=== PATIENT | female | born 1950 | race Caucasian/White ===

== ENCOUNTER → 2018-08-24 | Outpatient (CLI) | payer MEDICARE, OTHER ==
--- NOTE | 2018-08-28 17:41 | BD ---
EXAMINATION TYPE: Axial Bone Density DATE OF EXAM: 08/24/2018 COMPARISON: 05.31.2006 CLINICAL HISTORY: 68 YR OLD FEMALE....ICD-10 CODE: M81.0 AGE RELATED OSTEOPOROSIS Height: 67 Weight: 154 FRAX RISK QUESTIONS: Secondary Osteoporosis: YES 3. Menopause before 45: YES AT AGE 30 RISK FACTORS HISTORY OF: Family History of Osteoporosis: YES, HER MOTHER, NO FX Active: YES Postmenopausal woman: TOTAL HYST AT AGE 30 YRS OLD Take estrogen and/or progesterone medications: YES SINCE AGE 30 MEDICATIONS: Prednisone or other steroids: PREDNISONE 2 WKS AGO FOR SINUS INFECTION Additional Medications: CLONOPIN FOR SLEEP AND ANXIETY, REFLUX PRN, VIT D Additional History: ANXIETY EXAM MEASUREMENTS: Bone mineral densitometry was performed using the [email or web address] System. Bone mineral density as measured about the Lumbar spine is: ----- L1-L4(G/cm2): 1.131 T Score Values are as follows: ----- L1: -0.3 ----- L2: -0.6 ----- L3: 0.0 ----- L4: -0.8 ----- L1-L4: -0.4 Bone mineral density has: Decreased -6.8% since study of: 05.31.2006 Bone mineral density about the R hip (g/cm2): 0.898 Bone mineral density about the L hip (g/cm2): 0.939 T Score values are as follows: -----R Neck: -1.2 -----L Neck: -0.7 -----R Total: -0.9 -----L Total: -0.5 Bone mineral density has: Increased 0.9% since study of: 05.31.2006 FRAX%s: THERE IS A 8.0% CHANCE FOR A MAJOR OSTEOPOROTIC FX AND A 0.9% FOR HIP.....PROBABILITY OF FX IN 10 YRS TIME IMPRESSION: Osteopenia (T Score between -2.5 and -1). There is slightly increased risk of fracture and the patient may be considered for treatment. Re-Screen 2-5 years. NOTE: T-SCORE=SD OF THE YOUNG ADULT MEAN.
== END | disposition home or self-care (01) ==
LOC: RADBDWWP 07:28
PROVIDERS: ATTEND Family Medicine
DX: M85.80 Other specified disorders of bone density and structure, unspecified site (principal)
CPT/HCPCS: 77080

== ENCOUNTER → 2019-11-06 | Outpatient (CLI) | payer MEDICARE ==
[2019-11-06 13:04] LABS: HCT 46.9 % (34.0-46.0); HGB 15.1 gm/dL (11.4-16.0); MCH 30.8 pg (25.0-35.0); MCHC 32.2 g/dL (31.0-37.0); MCV 95.7 fL (80.0-100.0); Mean Platelet Volume 8.3; Platelet Count 190 k/uL (150-450); RDW 12.3 % (11.5-15.5); WBC 6.5 k/uL (3.8-10.6)
--- NOTE | 2019-11-06 13:41 | ECHOS ---
STRESS ECHOCARDIOGRAM LUMASON: Vial INDICATIONS: Abnormal EKG. MEDICATIONS: BASELINE HEART RATE: 55 BASELINE BLOOD PRESSURE: 107/63 MAXIMUM HEART RATE: 147 MAXIMUM BLOOD PRESSURE: 161/62 85% MPHR: 128 100% MPHR: 157 METS: 7.7 MAXIMUM STAGE REACHED: 3 TOTAL EXERCISE TIME: 6:39 CLINICAL INFORMATION: INDICATION: Exertional shortness of breath with abnormal EKG. Baseline EKG shows sinus rhythm, poor R-wave progression without significant ST-segment depression. Patient exercised on Gurinder protocol for a total of 6.5 minutes achieving 8 METS, 97% of predicted maximal heart rate without chest pain. At this level of activity, she became quite short of breath and there was 1.[address]-segment depression noted in the inferolateral leads. Baseline echo shows normal left ventricular size, wall motion, systolic function. Postexercise, the major septic is suboptimal. There is evidence of exercise-induced wall motion abnormality involving the inferior wall. CONCLUSION: 1. Fair exercise tolerance. 2. Abnormal stress test by EKG criteria. 3. Technically suboptimal but abnormal stress echo. MMODL / IJN: [id number] /
[2019-11-06 15:08] LABS: Albumin 4.1 g/dL (3.5-5.0); Calcium 9.4 mg/dL (8.4-10.2); Potassium 4.2 mmol/L (3.5-5.1); Total Bilirubin 0.6 mg/dL (0.2-1.3)
== END | disposition home or self-care (01) ==
LOC: RADNMMAIN 09:32
PROVIDERS: ATTEND Family Medicine
DX: R94.31 Abnormal electrocardiogram [ECG] [EKG] (principal); R07.9 Chest pain, unspecified
CPT/HCPCS: 80053; 80061; 85027; 93351

== ENCOUNTER → 2019-11-14 | Day surgery (SDC) | payer MEDICARE ==
[2019-11-13 08:34] VITALS: BMI 22.2
[~2019-11-14] MED LIST: ALPRAZolam 0.25 MG TAB PO PRN; ALPRAZolam 0.5 MG TAB PO PRN; ASPIRIN 325 MG TAB PO STA; IOPAMIDOL-370 125ML BTL INJ ONE; LIDOCAINE 1% INJ 10MG/ML (20 ML MDV) SQ ONE; MIDAZOLAM 2 MG/2 ML VIAL IVP ONE; NITROGLYCERIN SL TABS 0.4 MG TAB SUBLINGUAL PRN; RX INFO: IV CONTRAST WAS GIVEN 1 EACH MISC MISCELLANE PRN; SODIUM CHLORIDE 0.9% 1,000 ML in EMPTY BAG 1 BAG IV ONE; fentaNYL (PF) 50 MCG/ML 2 ML AMP IVP ONE
[2019-11-14 08:39] VITALS: RESP 18; TEMP 98.1
[2019-11-14 16:03] VITALS: PULSE 58
--- NOTE | 2019-11-14 16:03 | LTR ---
To: Dr. Amanda Swanson Re: Priyanka Case (50) Dear Amanda: I performed cardiac catheterization on Priyanka Case. A detailed catheterization is enclosed for your records. In brief, cardiac catheterization revealed normal coronary arteries, and patient's chest pain is noncardiac in origin. Stress echo is a false-positive stress test. Thank you for giving me the privilege of participating in the care of this pleasant lady. Sincerely, Yared Diamond M.D. GÓMEZ / CELIO: [id number] /
--- NOTE | 2019-11-14 16:03 | CC ---
CARDIAC CATHETERIZATION REPORT INDICATION: Chest pain with abnormal stress echo. PROCEDURE NOTE: After obtaining informed consent, left heart catheterization and coronary angiogram were performed via the right femoral artery using standard Joseline catheters. The patient tolerated the procedure well without any obvious immediate complications. A femoral angiogram was performed and Angio-Seal was deployed for hemostasis. The patient received moderate conscious sedation. Total sedation time was 14 minutes. FINDINGS: HEMODYNAMICS: Left ventricular end-diastolic pressure is 12-14 mm. There is no significant gradient across the aortic valve. LEFT VENTRICULOGRAM: Left ventriculogram was not performed. ANGIOGRAPHIC DATA: 1. Left main coronary artery. Left main coronary artery is a normal-sized vessel and is free of stenosis. It divides into left anterior descending coronary artery and circumflex coronary artery. LAD and its branches and circumflex coronary artery and its branches are free of significant stenosis. 2. Right coronary artery is free of significant disease. CONCLUSIONS: 1. Normal coronary arteries. 2. Normal left ventricular end-diastolic pressure. PLAN: Patient's chest pain is noncardiac in origin, and the stress echo is a falsely positive stress test. Her management is going to be in the form of risk factor modification. MMODL / IJN: [id number] /
[2019-11-14 16:34] VITALS: BP 122/56
== END ==
LOC: CATHCVL 07:40
PROVIDERS: ATTEND Internal Medicine Cardiovascular Disease
DX: R07.9 Chest pain, unspecified (principal); R94.39 Abnormal result of other cardiovascular function study; R06.02 Shortness of breath; E78.5 Hyperlipidemia, unspecified; Z79.890 Hormone replacement therapy; Z79.899 Other long term (current) drug therapy; Z82.49 Family history of ischemic heart disease and other diseases of the circulatory system
CPT/HCPCS: 93458; C1769 ×3; C1760; C1894; J2250; J2001; J3010; Q9967

== ENCOUNTER → 2020-08-05 | Outpatient (CLI) | payer MEDICARE ==
--- NOTE | 2020-08-05 13:59 | CT ---
EXAMINATION TYPE: CT sinus wo con DATE OF EXAM: 08/05/2020 COMPARISON: NONE HISTORY: Chronic sinusitis per order. Headaches with facial or sinus pain for 6 months for a patient. CT DLP: 569.10 mGycm. Automated Exposure Control for Dose Reduction was Utilized. TECHNIQUE: CT scan of the sinuses is performed without contrast, axial images are obtained, coronal r eformatted images are also reviewed. FINDINGS: The paranasal sinuses including the frontal, ethmoid, sphenoid, and maxillary sinuses bila terally are well-aerated without abnormal opacification. The ostiomeatal complex is patent bilateral ly on coronal image 18. Nasal septum is deviated to left of midline. Visualized portion of mastoid air cells show no abnormal opacification. The globes are intact bilate rally. Visualized portion of brain parenchyma is unremarkable. IMPRESSION: The paranasal sinuses are clear and the ostiomeatal complex is patent bilaterally.
== END ==
LOC: RADCTMAIN 13:09
PROVIDERS: ATTEND Otolaryngology
DX: J32.9 Chronic sinusitis, unspecified (principal)
CPT/HCPCS: 70486

== ENCOUNTER → 2020-09-28 | Outpatient (CLI) | payer MEDICARE ==
--- NOTE | 2020-10-20 11:09 | EM ---
Event monitor shows Sinus rhythm PACs and atrial couplets and triplets 1 short run of paroxysmal atrial tachycardia, nonsustained for 6 beats MTDD
== END | disposition home or self-care (01) ==
LOC: RADECHMAIN 12:24
PROVIDERS: ATTEND Family Medicine
DX: R55 Syncope and collapse (principal)
CPT/HCPCS: 93270

== ENCOUNTER → 2020-11-26 | Outpatient (CLI) | payer MEDICARE ==
--- NOTE | 2020-11-26 18:28 | CT ---
EXAMINATION TYPE: CT brain wo con DATE OF EXAM: 11/26/2020 COMPARISON: None HISTORY: Right eye pain after syncope. CT DLP: 1025.[address] of the brain was performed. The ventricles, basal cisterns and sulci overlying the cerebral convexities demonstrate mild enlargem ent. There is no evidence for intracranial hemorrhage or sulcal effacement. There is decreased attenuation about the periventricular white matter and deep white matter of both c erebral hemispheres, compatible with chronic small vessel ischemia. Differential diagnosis does inclu de demyelination. No mass effects are seen.No midline shift. Osseous calvarium is intact. If symptoms persist consider MRI. IMPRESSION: 1. Age related atrophic and chronic small vessel ischemic change without acute intracranial process s een at this time.
== END | disposition home or self-care (01) ==
LOC: RADCTMAIN 18:04
PROVIDERS: ATTEND Psychiatry & Neurology Neurology
DX: I67.82 Cerebral ischemia (principal); G31.9 Degenerative disease of nervous system, unspecified
CPT/HCPCS: 70450

== ENCOUNTER → 2020-12-10 | Outpatient (CLI) | payer MEDICARE ==
--- NOTE | 2020-12-10 14:19 | P.PAINCN ---
History of Present Illness - Reason for Consult Consult date: 12/10/20 - History of Present Illness This is years old female with a chronic history of severe neck pain and headache, patient reported that she used to have migraine headaches since childhood, and usually she used to get back every week, that 3 months ago , she fainted her head hit the bathroom floor, and from that time she started having severe neck pain and headache, neck pain is constant and increases with any neck movement especially hyperextension, she denies any radiation of the pain she denies any numbness or tingling sensation in the upper extremity, he denies any motor or sensory deficit, he denies any change in the bowel movement or urination, patient tried chiropractors and ice and heat out any benefit and she tried Maxalt and Excedrin Migraine, she had minimum benefit from Past Medical History Past Medical History: Mitral Valve Prolapse (MVP) Additional Past Medical History / Comment(s): "leaky valve" per pt., had been told in past had MVP, hx. of frequent UTI's, always shows blood in urine, migraine headaches, SOB w/incline walking other parry not History of Any Multi-Drug Resistant Organisms: None Reported Past Surgical History: Cholecystectomy, Hysterectomy Additional Past Surgical History / Comment(s): septorinialplasty, 4 cystyscopes 2014. Past Anesthesia/Blood Transfusion Reactions: No Reported Reaction Past Psychological History: Anxiety Smoking Status: Never smoker Past Alcohol Use History: Occasional Past Drug Use History: None Reported Medications and Allergies Home Medications Medication Instructions Recorded Confirmed Type Aspirin/Acetaminophen/Caffeine 1 each PO Q6H PRN 11/13/19 12/10/20 History [Excedrin Migraine Caplet] Rizatriptan Benzoate [Maxalt] 10 mg PO DIRECTED PRN 11/13/19 12/10/20 History Sertraline [Zoloft] 25 mg PO DAILY 11/13/19 12/10/20 History estradioL [Estradiol 0.0375 MG 1 patch TRANSDERM Q7DAYS 11/13/19 12/10/20 History Patch] Rosuvastatin [Crestor] 5 mg PO WEEKLY 12/10/20 12/10/20 History Allergies Allergy/AdvReac Type Severity Reaction Status Date / Time metoclopramide [From Reglan] AdvReac felt hyper Verified 11/14/19 08:26 prochlorperazine AdvReac felt hyper Verified 11/14/19 08:26 [From Compazine] Physical Exam Vitals: Intake and Output 12/09/20 12/10/20 12/10/20 22:59 06:59 14:59 Other: Weight 63.049 kg Physical Examinations : -Constitutiona : Cooperative , not in acute distress . -HEENT : nech : supple , no Lymphadenopathy , normal thyroid size . : eyes : no ptosis , no icterus, no photophobia . - neurologic : Cranial nerve II to XII intact , no focal neurological deffecit . -psychatric : alert , oriented X 3 , appropriate affect , intact judgment and insight . -Lymphatic : no Lymphadenopathy . - musculoskeltal : Cervical Spine motor stregnth in the deltoid and biceps, normal right side , normal Left side motor stregnth biceps and the wrist extensors normal right side ,normal left side . motor stregnth in the triceps muscle . normal Right side , normal Left side deep tendon reflexes normal at the biceps , normal at Brachioradialis , normal at triceps. cervical facet loading test: Positive Bilaterally Spurling test= negative bilaterally. Neck distraction test= negative bilaterally Sayda sign= negative bilaterally. Tenderness over the occipital nerves bilaterally Lumber spine moter stegnth lower extremities ,thigh and legs 5/5 Right side , 5/5 Left side Results Comments: MRI of the cervical spine degenerative disc disease Assessment and Plan Plan: Assessment and plan=1-occipital neuralgia bilaterally. 2-cervicogenic headache. 3-cervical spondylosis. Patient could benefit from occipital block bilaterally If patient continued to have pain after occipital nerve block then we will consider doing diagnostic medial branch block cervical area Time with Patient: Greater than 30 PQRS Measure Charge Sheet Measure #130: Documentation of Current Meds in Medical Chart: Patient's medications documented in chart Measure #226: Tobacco Use: Screen & Cessation Intervention: Pt not a tobacco user Measure #111: Pneumonia Vaccination: Pneumococcal vaccine administered or previously received Measure #47: Advance Care Plan: Advance care planning discussed & documented, pt chose/unable to give Measure #412: Opioid Treatment Agreement: No documentation of signed opioid treatment agreement Measure #408: Opioid Therapy Follow-up Evaluation: Patient had NO f/u eval minimum every 3 months during opioid therapy Measure #317: Preventitive Care & Scrn High Bld Press & F/U: Normal blood pressure, f/u not required Measure #128: Body Mass Index (BMI) Screening & Follow-up: BMI documented within normal parameters Measure #131: Pain Assessment & Follow-up: Pain positive & plan documented, Follow-up scheduled Measure #431: Unhealthy Alcohol Use Preventative Care & Scrn: Patient not identified as an unhealthy alcohol user PQRS Narrative: Smoking Status Never smoker Home Medications: Ambulatory Orders Aspirin/Acetaminophen/Caffeine [Excedrin Migraine Caplet] 1 each PO Q6H PRN 11/13/19 Rizatriptan Benzoate [Maxalt] 10 mg PO DIRECTED PRN 11/13/19 Sertraline [Zoloft] 25 mg PO DAILY 11/13/19 estradioL [Estradiol 0.0375 MG Patch] 1 patch TRANSDERM Q7DAYS 11/13/19 Rosuvastatin [Crestor] 5 mg PO WEEKLY 12/10/20
[2020-12-10 14:20] VITALS: BP 120/74; PULSE 66; RESP 18; TEMP 97.8
== END ==
LOC: PNWHC3 12:55
PROVIDERS: ATTEND Specialist
DX: M54.81 Occipital neuralgia (principal); M47.812 Spondylosis without myelopathy or radiculopathy, cervical region; Z88.8 Allergy status to other drugs, medicaments and biological substances
CPT/HCPCS: 99211

== ENCOUNTER 2021-01-07 06:43 | Day surgery (SDC) | payer MEDICARE ==
[2021-01-06 10:41] VITALS: BMI 21.7
[~2021-01-07 06:43] MED LIST changes: -ALPRAZolam 0.25 MG TAB PO PRN; -ALPRAZolam 0.5 MG TAB PO PRN; -ASPIRIN 325 MG TAB PO STA; -IOPAMIDOL-370 125ML BTL INJ ONE; +LACTATED RINGERS 1,000 ML IV SCH; -LIDOCAINE 1% INJ 10MG/ML (20 ML MDV) SQ ONE; -MIDAZOLAM 2 MG/2 ML VIAL IVP ONE; -NITROGLYCERIN SL TABS 0.4 MG TAB SUBLINGUAL PRN; -RX INFO: IV CONTRAST WAS GIVEN 1 EACH MISC MISCELLANE PRN; -SODIUM CHLORIDE 0.9% 1,000 ML in EMPTY BAG 1 BAG IV ONE; -fentaNYL (PF) 50 MCG/ML 2 ML AMP IVP ONE
[2021-01-07 07:29] VITALS: TEMP 97.6
[2021-01-07] MEDS ORDERED: fentaNYL (PF) 50 MCG/ML 2 ML AMP ONE (08:05)
[2021-01-07] MEDS ORDERED: MIDAZOLAM 2 MG/2 ML VIAL ONE (08:05)
[2021-01-07] MEDS ORDERED: methylPREDNISolone ACETATE 40 MG/ML 1 ML VIAL ONE (08:05)
[2021-01-07] MEDS ORDERED: ROPIVACAINE 5MG/ML 20ML VIAL ONE (08:05)
--- NOTE | 2021-01-07 08:13 | P.PCN ---
Date of Procedure: 01/07/21 Procedure(s) Performed: Preoperative diagnoses= 1- Greater occipital neuralgia. 2-cervicogenic headache. 3-cervical spondylosis with cervical facet arthropathy Postoperative diagnoses= same as preoperative diagnosis. Procedure= Bilateral Greater occipital nerve block Anesthesia= moderate sedation with Versed 1 mg and fentanyl 50 micrograms . Estimated blood loss=minimal. Procedure indication= the patient had a history of severe chronic neck pain ,and headache, diagnosed with occipital neuralgia exam was positive for severe tenderness over the occipital nerve bilaterally, she will be a good candidate occipital nerve block, patient failed conservative management Procedure description= the patient was seen and identified in the preoperative holding area, risks and benefits and alternative of the procedure and possible complications discussed with the patient, and he agreed with the preceding, patient signed the consent, an IV was started, and vital signs were monitored and were stable throughout the procedure, patient was placed in the sitting position or table and the neck area was prepped and draped with a sterile fashion, vital signs were closely monitored during the procedure, 25-gauge needle advanced 1 inch lateral to the occipital protuberance on the right side, at the location of the right occipital nerve , then after negative aspiration for heme and CSF and there was no paresthesia during the injection, 5 ml of Robivacaine 0.5% and 20 mg of Depo-Medrol injected after negative aspiration, the needle removed, and the entire same procedure was repeated for the left Greater occipital nerve. Patient tolerated the procedure well without any complication, The patient returned to supine position after the back was cleaned and a Band- Aid applied, the patient transported to recovery room in stable condition and he was monitored for 30 minutes before he was discharged home and then patient was reexamined before going home and patient was discharged in stable condition and patient will follow up with the pain clinic in a few weeks.
[2021-01-07] MEDS ORDERED: IV FLUID CONTINUATION 850 ML IV ONE (08:27)
[2021-01-07 08:32] VITALS: RESP 20
[2021-01-07 08:49] VITALS: BP 104/76; PULSE 60
== END 2021-01-07 08:49 | disposition home or self-care (01) ==
LOC: ORPAIN 06:43
PROVIDERS: ATTEND Specialist
DX: M54.81 Occipital neuralgia (principal); R51.9 Headache, unspecified; M47.812 Spondylosis without myelopathy or radiculopathy, cervical region
CPT/HCPCS: 64405; J2250; J1030; J3010; J2795

== ENCOUNTER 2021-02-09 09:41 | Day surgery (SDC) | payer MEDICARE ==
[2021-02-04 14:34] VITALS: BMI 21.9
[2021-02-09 10:01] VITALS: RESP 18; TEMP 97.9
[2021-02-09] MEDS ORDERED: fentaNYL (PF) 50 MCG/ML 2 ML AMP ONE (10:43)
[2021-02-09] MEDS ORDERED: ROPIVACAINE 5MG/ML 20ML VIAL ONE (10:43)
[2021-02-09] MEDS ORDERED: MIDAZOLAM 2 MG/2 ML VIAL ONE (10:43)
[2021-02-09] MEDS ORDERED: TRIAMCINOLONE ACETONIDE 40 MG/ML 1 ML VIAL ONE (10:43)
[2021-02-09] MEDS ORDERED: LIDOCAINE 1% INJ 10MG/ML (20 ML MDV) ONE (10:43)
--- NOTE | 2021-02-09 10:55 | P.PCN ---
Date of Procedure: 02/09/21 Surgeon: Roxane Coffman Pathology: none sent Condition: stable Disposition: PACU Description of Procedure: Pre-operative diagnosis: 1- bilateral occipital neuralgea, cervical spondylosis Post Operative Diagnosis 1-same as above Procedure: 1- bilateral occipital nerve block ANESTHESIA: Local with Lidocaine 1% and IV Moderate conscious sedation with Versed and fentanyl EBL: Minimal PROCEDURE INDICATION: The patient with neck pain and headache secondary to occipital neuralgea unresponsive to conservative treatments. PROCEDURE DESCRIPTION / TECHNIQUE: The patient was seen and identified in the preoperative area. Risks, benefits, complications, and alternatives were discussed with the patient, the patient agreed to proceed with the procedure and signed the consent. IV was started. Vital signs remained stable throughout the procedure. Patient was taken to the OR and time out was completed. The patient was placed in the prone position on the procedure table. . The cervical area and right occiptial area were prepped with chloraprep. Critical pause was taken. Vital signs were closely monitored during the procedure. Conscious sedation was used during the procedure to decrease patients anxiety. The the occipital exuberance and superior nuchal line were identified on the right side of the occiput. The greater occipital nerve location was estimated to be medial to the occipital artery . Skin was localized with lidocaine 1% then I used 25-gauge 1-1/2 inch needle to go through the skin and infiltrate 2.5 MLS of a solution made up of 4 MLS Marcaine 0.5% +40 mg of Kenalog. Patient tolerated procedure well.
[2021-02-09 11:17] VITALS: BP 150/70; PULSE 62
[2021-02-09] MEDS ORDERED: IV FLUID CONTINUATION 1,000 ML IV ONE (11:18)
== END 2021-02-09 11:22 | disposition home or self-care (01) ==
LOC: ORPAIN 09:41
PROVIDERS: ATTEND Anesthesiology
DX: M47.812 Spondylosis without myelopathy or radiculopathy, cervical region (principal)
CPT/HCPCS: 64405; J2250; J3301; J2001 ×2; J3010; J2795

== ENCOUNTER → 2023-07-13 | Outpatient (CLI) | payer MEDICARE ==
[2023-07-13 09:31] LABS: African American GFR (CKD) 79 (>60 ml/min/1.73 sqM); Blood Urea Nitrogen 16 mg/dL (7-17); Non-African American GFR(CKD) 68 (>60 ml/min/1.73 sqM)
--- NOTE | 2023-07-13 10:59 | CT ---
EXAMINATION TYPE: CT abdomen pelvis w con DATE OF EXAM: 07/13/2023 COMPARISON: 11/12/2010. HISTORY: Left lower quadrant pain. CT DLP: 1122 mGycm Automated exposure control for dose reduction was used. TECHNIQUE: Helical acquisition of images was performed from the lung bases through the pelvis. CONTRAST: Performed with Oral Contrast and with IV Contrast, patient injected with 100ml mL of Isovue 300. EXAMINATION TYPE: CT abdomen pelvis w con DATE OF EXAM: 07/13/2023 COMPARISON: HISTORY: Left lower quadrant pain. CT DLP: 1122 mGycm Automated exposure control for dose reduction was used. TECHNIQUE: Helical acquisition of images was performed from the lung bases through the pelvis. CONTRAST: Performed with Oral Contrast and with IV Contrast, patient injected with 100ml mL of Isovue 300. FINDINGS: LOWER CHEST : The visualized lung bases are clear. There are no pleural or pericardial effusions. ABDOMEN: Liver and Biliary system: Normal. Adrenal glands: Normal. Kidneys and ureters: There is a 4.4 cm simple cyst in the interpolar region of the left kidney. The k idneys otherwise appear unremarkable. Spleen: Normal. Pancreas: Normal. Gallbladder: Normal. Lymph nodes, Peritoneum and mesentery: There is no mesenteric or retroperitoneal lymphadenopathy. Gastrointestinal tract: There are no dilated loops of bowel or free intraperitoneal air. The appe ndix is not clearly seen with no secondary changes of appendicitis identified. There is mild sigmoid colonic diverticulosis without evidence of diverticulitis. Aorta/IVC: No aortic aneurysm. IVC normal. Abdominal wall: Normal. PELVIS: Fluid: There is no free fluid in the pelvis. Lymph Nodes: There is no pelvic or inguinal lymphadenopathy.. Urinary bladder: Normal. BONES: There are no osseous destructive lesions.. ADDITIONAL SIGNIFICANT FINDINGS: None. IMPRESSION: 1. No acute process seen within the abdomen or pelvis. 2. Diverticulosis without evidence of diverticulitis.
== END | disposition home or self-care (01) ==
LOC: RADCTMAIN 08:09
PROVIDERS: ATTEND Internal Medicine Gastroenterology
DX: K57.30 Diverticulosis of large intestine without perforation or abscess without bleeding (principal)
CPT/HCPCS: 82565; 84520; 74177; 36415; Q9967

== ENCOUNTER → 2024-08-15 | Outpatient (CLI) | payer MEDICARE ==
--- NOTE | 2024-08-15 14:56 | P.PAINCN ---
History of Present Illness - History of Present Illness 74-year-old pleasant lady who has been having headache with occipital attribut ion for most of her life. The past patient had occipital nerve block with questionable improvement. Followed by neck trigger point injection and ultimately cervical spine fusion.. Her headache is significantly bothering her which is located in the back of the neck going down to back of the head and occipital area across her head in the frontal area and behind her eyes. No particular side worse than the other. Pain also distributes down to the neck area. She describes her pain as achy in character present most of the days. Density goes up to 7/10. No particular triggering or relieving factor. Denies any other accompanying symptoms such as motor or sensory deficits. Past Medical History Past Medical History: Mitral Valve Prolapse (MVP) Additional Past Medical History / Comment(s): "leaky valve" per pt., had been told in past had MVP, hx. of frequent UTI's, always shows blood in urine, migraine headaches, SOB w/incline walking other parry not History of Any Multi-Drug Resistant Organisms: None Reported Past Surgical History: Cholecystectomy, Hysterectomy Additional Past Surgical History / Comment(s): septo-rhinoplasty, 4 cystoscopes 2014. Past Anesthesia/Blood Transfusion Reactions: No Reported Reaction Additional Past Anesthesia/Blood Transfusion Reaction / Comm: takes alot to be sedated per pt. Smoking Status: Never smoker Medications and Allergies Home Medications Medication Instructions Recorded Confirmed Type Aspirin/Acetaminophen/Caffeine 1 each PO Q6H PRN 11/13/19 02/09/21 History [Excedrin Migraine Caplet] Rizatriptan Benzoate [Maxalt] 10 mg PO DIRECTED PRN 11/13/19 02/09/21 History Sertraline [Zoloft] 25 mg PO DAILY 11/13/19 02/09/21 History estradioL [Estradiol 0.0375 MG 1 patch TRANSDERM TUFR 11/13/19 02/09/21 History Patch] Rosuvastatin [Crestor] 5 mg PO WEEKLY 12/10/20 02/09/21 History Baclofen 10 mg PO TID PRN 01/06/21 02/09/21 History Cholecalciferol [Vitamin D3 (25 500 unit PO DAILY 01/06/21 02/09/21 History Mcg = 1000 Iu)] Cyanocobalamin [Vitamin B-12] 500 mcg PO DAILY 01/06/21 02/09/21 History Estrogens, Conjugated Cream 1 gm VAGINAL WEEKLY 01/06/21 02/09/21 History [Premarin Cream] L.acidoph,Paracasei, B.lactis 1 each PO DAILY 01/06/21 02/09/21 History [Probiotic] Meclizine [Antivert] 12.5 mg PO BID PRN 01/06/21 02/09/21 History Estazolam [Prosom] 1 mg PO HS PRN 02/04/21 02/09/21 History Allergies Allergy/AdvReac Type Severity Reaction Status Date / Time metoclopramide [From Reglan] AdvReac felt hyper Verified 08/15/24 14:28 prochlorperazine AdvReac felt hyper Verified 08/15/24 14:28 [From Compazine] Physical Exam On physical examination, significant tenderness and reproduction of her headache on palpation over the greater occipital nerves bilaterally. Moderate tenderness in cervical spine midline and paraspinal areas. Cervical spine flexion hyperextension rotation is limited because of pain. Motor and sensory exam in upper extremities grossly intact. Assessment and Plan Assessment: 1. Occipital neuralgia. 2. C2-3 facet joint arthropathy involving third occipital nerve. Plan: Will schedule for bilateral occipital nerve perineural injection with local anesthetics and steroid. Discussed the procedure and possible complications which may include infection bleeding nerve damage, arterial injection and subarachnoid injection of local anesthetics. Patient understands and all questions were answered. In future, if occipital nerve injection does not improve pain she could be a candidate for third occipital nerve block initially leading to radiofrequency ab lation if indicated. PQRS Measure Charge Sheet PQRS Narrative: Smoking Status Never smoker Hx Alcohol Use (MH) Yes: occ Home Medications: Ambulatory Orders Aspirin/Acetaminophen/Caffeine [Excedrin Migraine Caplet] 1 each PO Q6H PRN 0 11/13/19 Rizatriptan Benzoate [Maxalt] 10 mg PO DIRECTED PRN 11/13/19 Sertraline [Zoloft] 25 mg PO DAILY 11/13/19 estradioL [Estradiol 0.0375 MG Patch] 1 patch TRANSDERM TUFR 11/13/19 Rosuvastatin [Crestor] 5 mg PO WEEKLY 12/10/20 Baclofen 10 mg PO TID PRN 01/06/21 Cholecalciferol [Vitamin D3 (25 Mcg = 1000 Iu)] 500 unit PO DAILY 01/06/21 Cyanocobalamin [Vitamin B-12] 500 mcg PO DAILY 01/06/21 Estrogens, Conjugated Cream [Premarin Cream] 1 gm VAGINAL WEEKLY 01/06/21 L.acidoph,Paracasei, B.lactis [Probiotic] 1 each PO DAILY 01/06/21 Meclizine [Antivert] 12.5 mg PO BID PRN 01/06/21 Estazolam [Prosom] 1 mg PO HS PRN 02/04/21
[2024-08-15 15:39] VITALS: BP 125/72; PULSE 67; RESP 16; TEMP 98.2
== END ==
LOC: PNWHC3 14:01
PROVIDERS: ATTEND Pain Medicine Interventional Pain Medicine
DX: M54.81 Occipital neuralgia (principal); M47.812 Spondylosis without myelopathy or radiculopathy, cervical region; Z88.8 Allergy status to other drugs, medicaments and biological substances; Z88.1 Allergy status to other antibiotic agents
CPT/HCPCS: 99211

== ENCOUNTER 2024-08-27 09:48 | Day surgery (SDC) | payer MEDICARE ==
[2024-08-27] MEDS ORDERED: LACTATED RINGERS 1,000 ML IV SCH (10:03)
[2024-08-27 10:15] VITALS: TEMP 97.7
[2024-08-27] MEDS ORDERED: ROPIVACAINE 5MG/ML 20ML VIAL ONE (10:53)
[2024-08-27] MEDS ORDERED: methylPREDNISolone ACETATE 40 MG/ML 1 ML VIAL ONE (10:53)
--- NOTE | 2024-08-27 10:58 | P.PCN ---
Date of Procedure: 08/27/24 Procedure(s) Performed: Preoperative diagnoses= 1- Greater occipital neuralgia. 2-cervicogenic headache. 3-cervical spondylosis with cervical facet arthropathy Postoperative diagnoses= same as preoperative diagnosis. Procedure= Bilateral Greater occipital nerve block Anesthesia= none. Estimated blood loss=minimal. Procedure indication= the patient had a history of severe chronic neck pain ,and headache, diagnosed with occipital neuralgia exam was positive for severe tenderness over the occipital nerve bilaterally, she will be a good candidate occipital nerve block, patient failed conservative management Procedure description= the patient was seen and identified in the preoperative holding area, risks and benefits and alternative of the procedure and possible complications discussed with the patient, and he agreed with the preceding, patient signed the consent, and vital signs were monitored and were stable throughout the procedure, patient was placed in the sitting position or table and the neck area was prepped and draped with a sterile fashion, vital signs were closely monitored during the procedure, 25-gauge needle advanced 1 inch lateral to the occipital protuberance on the right side, at the location of the right occipital nerve , then after negative aspiration for heme and CSF and there was no paresthesia during the injection, 5 ml of Robivacaine 0.5% and 20 mg of Depo-Medrol injected after negative aspiration, the needle removed, and the entire same procedure was repeated for the left Greater occipital nerve. Patient tolerated the procedure well without any complication, The patient returned to supine position after the back was cleaned and a Band-A id applied, the patient transported to recovery room in stable condition and he was monitored for 30 minutes before he was discharged home and then patient was reexamined before going home and patient was discharged in stable condition and patient will follow up with the pain clinic in a few weeks.
[2024-08-27 11:06] VITALS: RESP 16
[2024-08-27 11:29] VITALS: BP 143/72; PULSE 64
== END 2024-08-27 11:40 | disposition home or self-care (01) ==
LOC: ORPAIN 09:48
PROVIDERS: ATTEND Specialist
DX: M54.81 Occipital neuralgia (principal); M47.812 Spondylosis without myelopathy or radiculopathy, cervical region; G44.86 Cervicogenic headache; Z88.8 Allergy status to other drugs, medicaments and biological substances
CPT/HCPCS: 64405; J2795; J1010

== ENCOUNTER → 2024-09-12 | Outpatient (CLI) | payer MEDICARE ==
--- NOTE | 2024-09-12 14:56 | XR ---
EXAMINATION TYPE: XR cervical spine limited DATE OF EXAM: 09/12/2024 2:51 PM INDICATION: Patient age:Female; 74 years old; Reason for study: M54.12 RADICULOPATHY, CERVICAL REGION; [facility], pain COMPARISON: None TECHNIQUE: The cervical spine was imaged in frontal, lateral, and odontoid projections. FINDINGS: Postsurgical changes from ACDF with disc hardware at C4-C6. Hardware appears intact with appropriate alignment. No acute fracture. Vertebral body heights are maintained. Disc space narrowing at C3-C4 an d C6-C7. Grade 1 anterolisthesis is seen at C7 on T1. Pedicles are intact. Soft tissues are within n ormal limits. The odontoid appears intact. IMPRESSION: 1. No fracture or dislocation. 2. Changes from ACDF C4-C6. Hardware appears intact with appropriate alignment. 3. Mild multilevel degenerative disc disease above and below the hardware. [facility], , 09/12/2024 2:54 PM
== END | disposition home or self-care (01) ==
LOC: RADXRMAIN 14:29
PROVIDERS: ATTEND Anesthesiology
DX: M50.123 Cervical disc disorder at C6-C7 level with radiculopathy (principal); M43.12 Spondylolisthesis, cervical region; Z98.1 Arthrodesis status
CPT/HCPCS: 72040

== ENCOUNTER → 2024-09-12 | Outpatient (CLI) | payer MEDICARE ==
[2024-09-12 14:20] VITALS: BP 123/74; PULSE 82; RESP 16
--- NOTE | 2024-09-12 15:27 | P.PAINPG ---
PQRS Measure Charge Sheet Comment: A 74 yr old female with a history of severe and chronic neck pain secondary to occipital neuralgia, cervicogenic headache presents today for evaluation s/p BL JOSE. Patient states she experienced 0% pain relief s/p procedure. Pain level is provoked at 5-6 /10 in intensity, constant, predominantly axial, localized in the cervical spine, throbbing in character w occasional shooting towards the lower neck. Pain is provoked by reading. Pain is alleviated with physician guided stretches daily since early Jul 2024, heat, medications, topical, use of soft cervical brace, repositioning and rest. Interventional pain procedures completed include Cervical surgery w hardware (2021), BL JOSE x1 Patient is currently on Tyl, Ibu, Excedrin, Icy-Hot, Salon Pas, CBD Oil Patient denies any side effects of the medication(s), denies excessive drowsiness or sleepiness, denies suicidal ideation and reports that the current pain medication is helping to control the pain and improve activities of daily living. Patient denies any motor or sensory deficits. Patient denies any fever or night sweats, denies any change in the bowel movements or urination. Physical Examination: -Constitutional: Cooperative. Not in acute distress . - Neurologic: Cranial nerve II to XII intact. No focal neurological deficits. - Psychatric: Alert & oriented x 3. Matching mood & appropriate affect. Judgment and insight intact. - Musculoskeletal: Cervical spine: Muscle bulk/ tone/ strength in the bilateral upper extremities normal Vertebral body tenderness to palpation over Spurling test positive Distraction test positive Facet loading test positive BL C2-C3/ C3-C4 Thoracic spine Muscle bulk / tone/ strength in the bilateral paraspinal muscles normal Vertebral body tender to palpation over Facet loading test positive TTP Lumbar spine: Motor bulk/ tone/ strength lower extremities , thigh and legs : 5/5 Deep tendon reflexes : Normal Knee Jerk. Normal Ankle Jerk . Vertebral body tenderness to palpation over Lumbar Facet Loading Test positive Straight Leg Raise: positive at 30 degrees right side/ left side Gaenslen's Test positive Sacral spine : Severe tenderness over the Sacroiliac joint: right side / left side Range of motion: Flexion of the lumbar spine <60 degrees Range of motion: Extension of the lumbar spine <20 degrees Gaenslen's Test positive R / L Daniele test: positive right side / left side Thigh Thrust Test positive R / L Sacral Thrust Test positive R/ L Imaging: CT non contrast brain from 11/26/20 reviewed MRI non contrast cervical spine from 11/02/20 reviewed Assessment and plan: Chronic head and neck pain secondary to Occipital neuralgia, Cervicogenic [facility]KEON Recommendation of cervical x ray M54.12. Prescription refill for Fioricet 40-300-50mg #120 w 1 RF. Use, side effects, adverse reactions and safe storage discussed. All questions answered. I have spent less than 30 minutes on patient care today. Dr Mayen was available by phone for the evaluation of this patient. The time was used to review the medical records including relevant urine studies and Prescription history (MAPs), review of the available imaging, evaluation and examination of the patient, coordination of care with the medical staff and if applicable referring physicians, as well as creation of the medical record - Pain Location Bilateral Upper Occipital Non-Pharmacological Interventions: Heat, Ice, Inactivity, Physical Therapy, Position/Reposition, Sitting Pharmacological Interventions: Block, Epidural, PRN Medication, Prophylactic Medication, Scheduled Medication, Topical Medication PQRS Narrative: Smoking Status Never smoker Hx Alcohol Use (MH) Yes: occ Home Medications: Ambulatory Orders Aspirin/Acetaminophen/Caffeine [Excedrin Migraine Caplet] 1 each PO Q6H PRN 11/13/19 Rizatriptan Benzoate [Maxalt] 10 mg PO DIRECTED PRN 11/13/19 Sertraline [Zoloft] 25 mg PO DAILY 11/13/19 Rosuvastatin [Crestor] 5 mg PO DIRECTED 12/10/20 Baclofen 10 mg PO TID PRN 01/06/21 diazePAM [Valium] 5 mg PO DIRECTED #1 tab 08/15/24 estradioL [Estrace] 1 mg PO DAILY 08/15/24 Zolpidem [Ambien] 5 mg PO HS 08/23/24 Butalb/Acetaminophen/Caffeine [Fioricet 50-300-40 mg Capsule] 1 - 2 cap PO Q4HR PRN 30 Days #120 cap 09/12/24 Controlled Substance Measures - Controlled Substance Measures Is patient prescribed a controlled substance at discharge?: No
== END ==
LOC: PNWHC3 13:49
PROVIDERS: ATTEND Anesthesiology
DX: M54.2 Cervicalgia (principal); M54.81 Occipital neuralgia; G89.29 Other chronic pain; G44.86 Cervicogenic headache; Z88.8 Allergy status to other drugs, medicaments and biological substances
CPT/HCPCS: 99211

== ENCOUNTER → 2024-09-19 | Outpatient (CLI) | payer MEDICARE ==
--- NOTE | 2024-09-20 17:55 | MR ---
INDICATION: Patient age:Female; 74 years old; Reason for study: RADICULOPATHY, CERVICAL REGION; [facility]. COMPARISON: Cervical spine radiograph 09/12/2024. TECHNIQUE: Multi planar, multi sequence imaging was performed of the cervical spine. No Gadolinium wa s given. FINDINGS: Alignment: The cervical vertebral bodies have preserved heights. Alignment is within normal limits gi harish patient positioning. Bones: Postsurgical changes from ACDF C4-C6 with intervertebral disc hardware. This creates susceptib ility artifact which limits evaluation. The remaining bone signal is within normal limits. No abnorm al STIR signal. Cord: The spinal cord is unremarkable with regards to their signal intensity and morphology. Discs: Multilevel disc desiccation is present. C2-C3: No significant disc pathology. The spinal canal is patent. No neural foraminal stenosis. C3-C4: Posterior disc osteophyte complex with minimal effacement of the anterior thecal sac. No signi ficant central canal stenosis. Uncovertebral joint hypertrophy. Moderate left neural foraminal stenos is. No significant right neural foraminal stenosis. C4-C5: Postsurgical changes without significant central canal stenosis. No significant neural forami nal stenosis. C5-C6: Postsurgical changes without significant central canal stenosis. Uncovertebral joint hypertrop hy. No significant right neural foraminal stenosis. Mild left neural foraminal stenosis. C6-C7: Broad-based disc bulge with mild effacement of the anterior thecal sac. Mild central canal mohan nosis. Uncovertebral joint hypertrophy. Mild left neural foraminal stenosis. The right neural foramen is patent. C7-T1: No significant disc pathology. The spinal canal is patent. No neural foraminal stenosis. Other: None. IMPRESSION: Postsurgical changes from ACDF C4-C6. Mild degenerative disc disease above and below the fusion with mild central canal stenosis at C6-C7. [facility], , 09/20/2024 5:53 PM
== END | disposition home or self-care (01) ==
LOC: RADMRIMAIN 14:26
PROVIDERS: ATTEND Specialist
DX: M48.02 Spinal stenosis, cervical region (principal); M50.11 Cervical disc disorder with radiculopathy, high cervical region; Z98.1 Arthrodesis status
CPT/HCPCS: 72141

== ENCOUNTER 2024-12-17 06:55 | Day surgery (SDC) | payer MEDICARE ==
[2024-12-13 14:52] VITALS: BMI 22.5
[2024-12-17] MEDS: LACTATED RINGERS 1,000 ML IV SCH (07:29)
[2024-12-17] MEDS: IV FLUID CONTINUATION 1,000 ML IV ONE ×2 (07:29→08:28)
[2024-12-17 07:37] VITALS: TEMP 97.4
[2024-12-17] MEDS ORDERED: fentaNYL (PF) 50 MCG/ML 2 ML AMP ONE (07:55)
[2024-12-17] MEDS ORDERED: ROPIVACAINE 5 MG/ML 30 ML VIAL ONE (07:55)
[2024-12-17] MEDS ORDERED: MIDAZOLAM 2 MG/2 ML VIAL ONE (07:55)
--- NOTE | 2024-12-17 08:32 | P.PCN ---
Description of Procedure: Description of Procedure: Preprocedure diagnosis. Cervical facet joint arthropathy, cervical spine spondylosis, cervical degenerative disc disease. Postprocedure diagnosis. As above. Procedure done. Bilateral C2-3, C3-4 facet joint (C3,C4 medial branch of dorsal ramus and third occipital nerve) diagnostic injection with local anesthetics under fluoroscopic guidance. Anesthesia. In OR Versed 2 mg and Fentanyl 150 microgram. Continuous pulse ox, EKG, blood pressure and verbal communication was maintained with the patient in OR. Sedation time-start 0755 end 0819. Blood loss. None. Indication. Patient has got the diagnoses of cervical spondylolysis, facet joint arthropathy with neck pain. Discussed with the patient procedure, alternatives, complications including infection, bleeding, nerve damage, paralysis all of which could be permanent. Patient understands and all questions are answered. Procedure note. After getting consent patient in OR in prone position. Back of the neck was prepped with chlorhexidine and draped in sterile fashion. After injecting 3 mL of plain 1% lidocaine subcutaneously, a 22-gauge spinal needle was introduced under tunnel vision of the fluoroscope AP view at the waist of the articular pillar (lateral mass) at C4 vertebral level. In the lateral view of the fluoroscope it was confirmed that the tip of the needle stayed within the dorsal half of the articular pillar (lateral mass). So, right C3-4 facet joint was targeted by blocking right C4 and C3 medial branch, right C2-3 facet joint was targeted by blocking right C3 medial branch and third occipital nerve. In exactly the same way , after subcutaneous injection of lidocaine, 22-gauge spinal needles were introduced under tunnel vision of the fluoroscope AP view at the waist of the articular pillars (lateral mass) at C3 vertebral level. In the lateral view of the fluoroscope it was confirmed that the tip of the needle stayed within the dorsal half of the articular pillar (lateral mass). To target third occipital nerve needle was placed at the lateral border of right C2-3 zygapophyseal joint itself. At each needle, 0.5 mL of 0.5% ropivacaine preservative-free was injected. In exactly same way left C2-3, C3-4 facet joints were targeted by blocking left third occipital nerve and C3, C4 medial branch of dorsal ramus. After the procedure needle was taken out and bandage was applied. Disposition. Patient tolerated the procedure well. No complication. Discharged home in stable condition.
[2024-12-17 08:46] VITALS: BP 139/95; PULSE 61; RESP 18
--- NOTE | 2024-12-17 08:47 | FL ---
Fluoroscopy INDICATION: Pain FINDINGS: Fluoroscopy time: 43 seconds. Total dose area product (DAP) in uGy*m?, mGy*cm? (or similar): 0.70945 Images obtained: 0. Images document [place] directed to the upper cervical spine IMPRESSION: 1. Documentation of fluoroscopy. [facility], Workstation: [email or web address], 12/17/2024 8:44 AM
== END 2024-12-17 08:59 | disposition home or self-care (01) ==
LOC: ORPAIN 06:55
PROVIDERS: ATTEND Pain Medicine Interventional Pain Medicine
DX: M47.812 Spondylosis without myelopathy or radiculopathy, cervical region (principal); M50.31 Other cervical disc degeneration, high cervical region; Z88.8 Allergy status to other drugs, medicaments and biological substances
CPT/HCPCS: 64490; 64491; J2250; J3010; J2795; 99152; 99153